=== PATIENT | female | born 1980 | race African-American/Black ===

== ENCOUNTER 2017-06-08 12:27 | Emergency (ER) | payer BC ==
[~2017-06-08] VITALS: Ht 154.9 cm; Wt 121.6 kg
--- NOTE | ~2017-06-08 | EKG ---
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: DENICE : 1980 Requested By: Edilberto Gaytan Order Number: [id number] MD: Jb Ritchie Measurements Intervals [place] Rate: 53 P: 5 [place]: 183 QRS: -2 QRSD: 98 T: 9 QT: 405 QTc: 381 Interpretive Statements Sinus arrhythmia Left ventricular hypertrophy ST elev, probable normal early repol pattern Compared to ECG 06/01/2017 19:33:11 ST (T wave) deviation now present Sinus rhythm no longer present Electronically Signed On 06-10-2017 16:17:20 CDT by Jb Ritchie [email or web address] <ELECTRONICALLY SIGNED> By: Jb Ritchie MD 06/10/17 1617 1242 1242 Jb Ritchie MD /EPI
[~2017-06-08 12:27] MED LIST: ACETAMINOPHEN-1 EAC1 PO; FAMCICLOVIR250 MG PO; LOPRESSOR50 PO; METROGEL55 GM VAG; MULTIVITAMINS1 EAC7 PO; VITAMINC500 PO
[2017-06-08 14:04] LABS: ABSOLUTE NEUTROPHILS 3.8 thou/uL (1.4-8.2); BASOPHILS 1.2 % (0.0-2.0); EOSINOPHILS 2.2 % (0.0-3.0); HEMATOCRIT 37.3 % (37.0-47.0); HEMOGLOBIN 12.3 gm/dL (12.0-15.0); MCH 26.7 pg (26.0-34.0); MCHC 32.9 g/dL (28.0-37.0); MCV 81.2 fL (80.0-100.0); MONOCYTES 10.3 % (1.0-8.0); PLATELET COUNT 282 thou/uL (150-400); POLYS 58.3 % (36.0-66.0); RBC 4.59 mil/uL (4.20-5.00); RDW 15.5 % (10.5-14.5); WBC 6.6 thou/uL (4.0-11.0)
[2017-06-08 14:05] LABS: MANUAL DIFF NO
[2017-06-08 14:16] LABS: ANION GAP 5 mmol/L (7-16); BUN 12 mg/dL (7-18); CHLORIDE 104 mmol/L (98-107); CO2 29 mmol/L (21-32); CREATININE 0.8 mg/dL (0.6-1.0); GLUCOSE 87 mg/dL (74-106); POTASSIUM 4.2 mmol/L (3.5-5.1); SODIUM 138 mmol/L (136-145)
[2017-06-08 14:20] LABS: TROPONIN-I < 0.04 ng/mL (<0.04-0.07)
[2017-06-08] MEDS ORDERED: NORVASC5 MG PO (14:56)
[2017-06-08 15:19] VITALS: BP 194/113
== END 2017-06-08 15:20 | disposition home or self-care (01) ==
LOC: ER 12:27
PROVIDERS: Physician Assistant
DX: I10 Essential (primary) hypertension (principal)

== ENCOUNTER → 2017-06-22 | Outpatient (CLI) | payer BC ==
[~2017-06-22] MED LIST changes: +NORVASC5 MG PO
== END ==
LOC: ULTRA 10:32
DX: E04.2 Nontoxic multinodular goiter (principal); I10 Essential (primary) hypertension

== ENCOUNTER → 2017-06-23 | Outpatient (CLI) | payer BC | LOC: ULTRA 07:28 | DX: I15.0 Renovascular hypertension (principal); E04.9 Nontoxic goiter, unspecified ==